=== PATIENT | male | born 1960 | race Caucasian/White ===

== ENCOUNTER 2023-09-18 08:29 | Inpatient (IN) | payer BC, SELFPAY ==
[2023-09-07 09:45] VITALS: BMI 27.6
[2023-09-07 10:14] LABS: % Basophils 0.3 % (0-2); % Eosinophils 6.6 % (0-6); % Immature Granulocytes 0.5 % (0-0.5); % Lymphocytes 17.6 % (20.5-51.1); % Monocytes 12.9 % (1.7-9.3); % Neutrophils 62.1 % (42.2-75.2); Absolute Eosinophils 0.5 10^3/uL (0-0.7); Absolute Lymphocytes 1.3 10^3/uL (1.2-3.4); Absolute Neutrophils 4.7 10^3/uL (1.4-6.5); Hematocrit 37.8 % (39.0-52.0); Hemoglobin 12.7 g/dL (13.0-18.0); Mean Corp Hgb Conc. 33.6 g/dL (33.0-37.0); Mean Corpuscular Hgb 29.7 pg (27.0-31.0); Mean Corpuscular Volume 88.5 fL (80.0-94.0); Mean Platelet Volume 11.1 fL (7.4-10.4); Nucleated Red Blood Cells % 0 % (-); Platelet Count 231 10^3/uL (130-400); Red Blood Cell Count 4.27 10^6/uL (4.70-6.10); Red Cell Dist. Width 13.9 % (11.5-14.5); White Blood Cell Count 7.6 10^3/uL (4.8-10.8)
[2023-09-07 10:39] LABS: ALT (SGPT) 18 U/L (0-50); AST (SGOT) 23 U/L (17-59); Albumin 4.4 g/dl (3.5-5.0); Alkaline Phosphatase 138 U/L (38-126); Blood Urea Nitrogen 24 mg/dl (9-20); Calcium 9.7 mg/dl (8.4-10.2); Carbon Dioxide 24 mmol/L (22-30); Chloride 105 mmol/L (98-107); Estimated Creatinine Clearance 61 ml/min; Glucose 92 mg/dl (70-99); Potassium 4.6 mmol/L (3.5-5.1); Sodium 136 mmol/L (135-145); Total Bilirubin 0.6 mg/dl (0.2-1.3); Total Protein 7.4 g/dl (6.3-8.2); eGFR 51.67
[2023-09-18] VITALS (8 sets, daily range): BP systolic 124–149; BP diastolic 85–109
--- NOTE | 2023-09-18 09:51 | W.PN.CD ---
Addendum entered and electronically signed by ALEJO Mckeon 09/18/23 12:15:
Addition to below- stopping diltiazem since patient with some bradycardia and also since now starting Tikosyn, reviewed case with Dr. Saravia.
Original Note:
Today's Communication / Plan
-
-Initiate Tikosyn 500 mcg PO q 12 hours, first dose now
-Stop diltiazem
-Follow telemetry, EKG's per protocol
-continue Eliquis for OAC
-Ablation tomorrow as planned
Impression / Plan
-
Assessment/Plan: 63 y/o male with AFIB/flutter with hx ablations/cardioversions, hypertension, GERD, hx melanoma, hx thyroid cancer s/p resection 2020, and CKD3a (Dr. Chambers) who is here for Tikosyn initiation with plan for ablation.
Persistent AFIB:
-symptomatic with fatigue and SHRESTHA
-initiate Tikosyn 500 mcg Q12H and follow telemetry and EKG's per protocol- this medicine requires intensive monitoring for toxicity
-will stop diltiazem
-continue Eliquis 5 mg PO BID- he has missed no doses
-plan is for ablation tomorrow- will review with Dr. Saravia
CKD:
-follows with nephrology
-labs stable from earlier this month
HTN:
-monitors at home and reports it is stable
-initial manual BP by me 126/90- follow, continue metoprolol
Physical Exam
Vital Signs/Labs
Vital Signs
Temp Resp Pulse Ox
98.0 F 18 100
09/18/23 09:20 09/18/23 09:20 09/18/23 09:20
Physical Exam
Constitutional: No acute distress
EENT: Anicteric
Cardiovascular: Pedal edema is absent and Rhythm/rate is irregular
Respiratory: Respiratory effort normal and Lungs clear to auscul.
GI: Soft, Non tender and Normal bowel sounds
Neuro/Psych: AO x 3
Other: Skin
Data Reviewed
-
Date of Service: September 18, 2023
EKG: Tracing Personally Visualized and interpreted (AFIB)
Labs: Labs Reviewed by me
[2023-09-18 10:04] LABS: Blood Urea Nitrogen 31 mg/dl (9-20); Calcium 9.5 mg/dl (8.4-10.2); Carbon Dioxide 19 mmol/L (22-30); Chloride 106 mmol/L (98-107); Estimated Creatinine Clearance 65 ml/min; Glucose 100 mg/dl (70-99); Potassium 4.2 mmol/L (3.5-5.1); Sodium 139 mmol/L (135-145); eGFR 56.13
--- NOTE | 2023-09-18 10:14 | PTCARENOTE ---
Pt direct admit for Tikosyn loading, A,A+Ox3. EKG done, IV started L forearm #[id number], labs sent.
[2023-09-18 10:19] LABS: Hematocrit 36.8 % (39.0-52.0); Hemoglobin 12.1 g/dL (13.0-18.0); Mean Corp Hgb Conc. 32.9 g/dL (33.0-37.0); Mean Corpuscular Hgb 29.4 pg (27.0-31.0); Mean Corpuscular Volume 89.3 fL (80.0-94.0); Mean Platelet Volume 11.8 fL (7.4-10.4); Platelet Count 250 10^3/uL (130-400); Red Blood Cell Count 4.12 10^6/uL (4.70-6.10); Red Cell Dist. Width 14.3 % (11.5-14.5)
--- NOTE | 2023-09-18 10:36 | W.CARD.TIKOS ---
Initiate Tikosyn
-
I verify that the patient has not taken any verapamil (Isoptin/Calan), ketoconazole (Nizoral), cimetidine (Tagamet), trimethoprim (Trimpex), trimethoprim/sulfamethoxazole (Bactrim), megesterol (Megace), prochlorperazine (Compazine),
hydrochlorothiazide (HCTZ), dolutegravir (Tivicay) or any Class I or Class III anti-arrhythmic within the last three days
AND
I verify that the patient has not taken amiodarone within the last THREE months, or that the patient's amiodarone plasma concentration is <0.3 mcg/mL.
Creatinine 1.4 mg/dL (0.7-1.3) H 09/18/23 09:36
Estimated Creat Clear 65 ml/min 09/18/23 09:36
Does patient have a Ventricular Conduction Abnormality: Yes
I have assessed the baseline QTc interval (using QT for heart rate less than 60 bpm) and deemed the patient is appropriate for Dofetilide therapy. I understand that Tikosyn is contraindicated if the QTc is >440msec (500msec in patients with
ventricular conduction abnormalities).
Baseline QTc (in msec): 408
QTc interval is greater than 440msec without conduction abnormality OR greater than 500msec with a conduction abnormality, but acceptable to proceed per Cardiology attending.
Ordering Physician: Timothy Saravia
--- NOTE | 2023-09-18 11:31 | CM ---
Chart reviewed. Patient is independent of ADLS, lives with his in a 3 STH, 2 SAEED, 0 DME. Patient currently with no discharge needs. CM to follow
--- NOTE | 2023-09-18 11:32 | CM ---
Pricing on Dofetilide through the patient's PP is $5 for a 30 day and $10 for a 90 day. Dofetilide 500mcq is available at the patient[facility]. I will confirm again closer to discharge.
[2023-09-18] MEDS: TIKOSYN 500 MCG PO ×2 (11:40→23:07)
[2023-09-18] MEDS: SODIUM BICARBONATE 650 MG PO (21:02)
[2023-09-18] MEDS: ELIQUIS 5 MG PO (21:02)
[2023-09-18] MEDS: TOPROL XL 100 MG PO (21:10)
[2023-09-19] VITALS (15 sets, daily range): BP systolic 108–141; BP diastolic 65–96
--- NOTE | 2023-09-19 04:47 | PTCARENOTE ---
Assmued care at 1900. Patient A-FiB 60-80's, 0030 3 beats of VT, no pauses. Tolerating Tikosyn qtc 482, NPO since midnight
[2023-09-19] MEDS: TOPROL XL PO (07:45)
--- NOTE | 2023-09-19 07:57 | W.PN.CD ---
Today's Communication / Plan
-
- Plan for Redo AF ablation
Impression / Plan
-
Assessment/Plan: 63 y/o male with AFIB/flutter with hx ablations/cardioversions, hypertension, GERD, hx melanoma, hx thyroid cancer s/p resection 2020, and CKD3a (Dr. Chambers) who is here for Tikosyn initiation with plan for ablation.
Persistent AFIB:
-symptomatic with fatigue and SHRESTHA
-Tikosyn started 09/18/23- 500 mcg Q12H and follow telemetry and EKG's per protocol
- this medicine requires intensive monitoring for toxicity
-off the diltiazem and contiue Metoprolol.
-continue Eliquis 5 mg PO BID- he has missed no doses
-plan is for redo AF ablation today
CKD:
-follows with nephrology
-labs stable from earlier this month
HTN:
-monitors at home and reports it is stable
-initial manual BP by me 126/90- follow, continue metoprolol
Physical Exam
Vital Signs/Labs
Vital Signs
Temp Pulse Resp BP Pulse Ox
97.6 F 63 16 135/93 96
09/19/23 05:53 09/18/23 23:11 09/19/23 05:53 09/18/23 23:11 09/19/23 05:53
09/18/23 09:36
09/18/23 09:36
Physical Exam
Constitutional: No acute distress and Comfortable
EENT: Anicteric and Moist mucous membranes
Cardiovascular: Rhythm/rate is irregular and Systolic murmur present
Respiratory: Respiratory effort normal, Wheeze Absent and Crackles Absent
GI: Soft, Distention absent and Non tender
Neuro/Psych: Alert, Oriented, AO x 3 and Motor deficits absent
Other: Cath Site
Data Reviewed
-
Date of Service: September 19, 2023
Medical Decision Making: Reviewed Test Results, Independent Historian Assessment, Test Interpretation and Review of Case with other Provider
EKG: Tracing Personally Visualized and interpreted
Echo: Report Reviewed by me
Labs: Labs Reviewed by me
Old Records: Reviewed
[2023-09-19 09:02] LABS: ACT-LR - POC 310 Seconds (116-155)
[2023-09-19 09:20] LABS: ACT-LR - POC 284 Seconds (116-155)
[2023-09-19 09:40] LABS: ACT-LR - POC 371 Seconds (116-155)
[2023-09-19 10:01] LABS: ACT-LR - POC 395 Seconds (116-155)
--- NOTE | 2023-09-19 10:09 | CM ---
Chart reviewed. Patient is going for an ablation today. Patient is independent of ADLS, lives in a 3 STH, 2 SAEED, 0 DME. Plan is for the patient to return home. CM to follow
[2023-09-19 10:30] LABS: ACT-LR - POC 321 Seconds (116-155)
[2023-09-19 10:55] LABS: ACT-LR - POC 363 Seconds (116-155)
[2023-09-19] MEDS: TIKOSYN PO (11:00)
--- NOTE | 2023-09-19 11:58 | ITS.CL.ABL ---
Control Operator - Ablation
Ablation
Procedure Report:
AFIB ablation:
Mr. Saravia is a very pleasant 63 yr old gentleman with h/o persistent AF s/p AF ablation in 09/2016 (Dr. Zaldivar) and had a redo AF ablation on 02/14/2020 (redo PVI, PWI, mitral flutter) with a left atrial diverticulum has gone into recurrent atrial
tachycardia / flutter / fibrillation and presented today to the EP lab for atrial fibrillation / flutter ablation.
Date of Procedure:
09/19/2023
Indications:
Recurrent atrial fibrillation / atrial flutter / Atrial tachycardia
Pre-Operative Diagnosis:
Atrial fibrillation/ Atrial flutter / Atrial tachycardia
Post-Operative Diagnosis:
Atrial fibrillation/ Atrial flutter / Atrial tachycardia
Procedure Performed:
Redo atrial fibrillation ablation with focal atrial fibrillation ablation
Posterior wall isolation
Left atrial anterior wall tachycardia ablation
Mitral isthmus ablation for zachary-mitral flutter ablation around the atrial diverticulum
Biatrial atrial flutter ablation
Coronary sinus atrial tachycardia ablation
Cavo tricuspid isthmus dependent flutter ablation.
Performing Physician:
Timothy Saravia MD
Assistants:
EP staff
Anesthesia:
See anesthesia records
Detailed Description of the Procedure:
Written informed consent was obtained from the patient after a full explanation of the risks and benefits of the procedure including the risks of sedation and anesthesia.
The patient was brought to the electrophysiology laboratory in stable condition in fasting state. Continuous electrocardiographic and hemodynamic monitoring was initiated.
The initial rhythm was atrial fibrillation.
Time out:
The procedure site was meticulously prepared with surgical scrub and allowed to dry with no pooling. Sterile draping was applied to cover the procedure site. The image intensifier was draped with sterile bag and positioned over the patient.
Prior to the start of the procedure a surgical pause was performed with in agreement from anesthesia, EP staff with double identifier and explanation of the procedure, plan and site of the procedure stated with allergies and medications and
pertinent labs reviewed.
After infusion of local anesthetic, vascular access was obtained under ultrasound guidance and sheaths were placed over guide wire as detailed below.
Sheaths:
��������������� Agilis sheath in right femoral vein upgraded from 8Fr in right femoral vein
��������������� 9Fr in right femoral vein
��������������� 7fr in right femoral vein
Catheters:
��������������� ������������� 3.5mm force sensing irrigated Thermocool STSF DF Bidirectional - at locations of HRA, LA, LV and CS.
��������������� ������������� Penta-ray mapping catheter � at locations of RA, LA
��������������� ������������� ICE catheter - at locations of RA, SVC, and RV.
��������������� ������������� Decapolar Bard catheter � at locations of RA and CS
A 7000 units of heparin was given
Intracardiac ECHO:
An 8-Montserratian AcuNav intracardiac ECHO (ICE) probe was advanced through the 9-Montserratian sheath in the right femoral vein into the right atrium under fluoroscopic and ICE ultrasound image guidance and a baseline ECHO study was performed. The left atrial
size was severely dilated. There was trace tricuspid regurgitation. There was mild mitral regurgitation. The aortic valve was grossly normal. There was normal left ventricular size and function. There is small pericardial effusion. All the four
veins were identified and has good flow identified. There was dense spontaneous contrast noted at the mouth of the ONUR. No definite clot seen. The left atrial diverticulum Doppler showed good flow in and out of the pouch.
During the procedure, ICE was used for monitoring of complications, guidance of trans-septal puncture, monitor the catheter position and tracking ablation lesions. No change in the pericardial space noted throughout the procedure.
Trans-septal Puncture:
Heparin was initiated and infused to maintain appropriate ACT. A J-tipped guidewire was advanced through the 8-Montserratian sheath in the right femoral vein into the superior vena cava under fluoroscopic and ICE guidance. The 8-Montserratian sheath was exchanged
for an Agilis sheath which was advanced into the superior vena cava. A BRK transseptal needle was advanced until the tip was slightly behind the tip of the dilator inside the Agilis sheath. The apparatus was withdrawn until it was in contact with
the fossa ovalis. The position was adjusted based on fluoroscopy and ultrasound images from ICE. Under fluoroscopic, hemodynamic and ICE ultrasound guidance, left atrium was cannulated by advancing the needle. Once atrial septum was cannulated, the
needle was pulled back and a BMW guide wire was advanced through the needle into the left atrium. The guide wire was advanced into the left superior pulmonary vein. Both the sheath and the dilator was advanced into the left atrium. The dilator with
the needle was withdrawn. Blood was aspirated from the Agilis sheath and arterial blood confirmed. The sheath was flushed. Saline injection noted into the left atrium on ICE. The mapping catheter was advanced in the Agilis sheath into the left
pulmonary vein. Left atrial pressure was measured and elevated V wave noted likely showing at least moderate mitral regurgitation.
3D Electroanatomic Mapping:
Using the Pentaray catheter advanced through Agilis sheath into the left atrium, an electroanatomic map (EAM) of the left atrium was created using Carto mapping system. The map was used for localization of catheter position and tacking of ablation
lesions.
The EAM of the left atrium showed 4 pulmonary veins with all 4 veins electrically isolated from the body the LA. The left atrial posterior wall has mid location of epicardial connections that were showing entrance of atrial fibrillation.
It showed extensive scar on the posterior and anterior wall of the LA with only occasional area of atrial electrical activity. The LA was dilated in size.
Following the EAM, preparation were made for ablation.
Ablation:
Ablation # 1: Atrial fibrillation ablation - Atrial foci ablation:
Using Carto mapping system, the Ripple mapping guided AF areas were identified. The Carto finder also identified high frequency areas and were marked. These areas of interest were ablated and the ablation points were extended to connect to the
previous ablation lesions of the mitral annulus to avoid any atrial flutter generation.
All PVI were rechecked at the end of the case and remained isolated with dissociated and local capture with pacing. Entrance and exit block were demonstrated in all veins.
Ablation # 2: Posterior wall isolation
The epicardial connections in the posterior wall were ablated using the 3.5 mm force sensing irrigated ablation catheter. There were no electrical activity left in the posterior wall.
The Cardioversion did not achieve sinus rhythm and the roof and the floor lines were extended.
Cardioversion:
Due to the developments of atrial fibrillation during the case, the decision was made to proceed with a cardioversion followed by the remainder of the ablation as detailed below. Therefore, a 200J shock was delivered to the chest with latter day of
ectopic atrial rhythm. The patient remained hemodynamically stable throughout.
The CS was paced. Patient developed an atrial flutter almost immediately. The CL was 540 ms
Ablation # 3: Mitral isthmus ablation for zachary-mitral flutter ablation around the atrial diverticulum
Tachycardia was 540 ms and was studied in detail.� Main treatment of the tachycardia shows it is in the coronary sinus. Electroanatomic mapping of the tachycardia that showed tachycardia is an atrial flutter revolving around the mitral valve without
critical stenosis at the superior border of left atrial diverticulum. Critical isthmus of the flutter was ablated and tachycardia turned into sinus rhythm with a duration of the block.
Ablation # 4: Left atrial anterior wall tachycardia ablation
Patient stayed in sinus rhythm for only few minutes. Left atrium was mapped in sinus rhythm but went back into atrial fibrillation which was organized with a focal source appears to be coming from the left atrial roof.
The source of the atrial tachycardia was identified and a line of ablation lesions were created connecting the roofline to the mitral isthmus again isolating the left atrial appendage. Left atrial appendage was mapped and was active with dissociated
from the left atrial flutters and was activated through ventricle with epicardial connections with one-to-one with ventricle and 2:1 with rest of the left atrium
With the ablation, patient went into atrial fibrillation and A. tach/flutter dissipated.
Ablation # 5: Biatrial atrial flutter ablation:
Another 200 J cardioversion was done to restore sinus rhythm. Sinus rhythm was achieved only for few minutes and went back into another tachycardia 410 ms cycle length
This tachycardia was again entrained from the CS and both proximal and distal CS was brought part of the tachycardia. The lateral wall of the right atrium was also paced and showed not part of the tachycardia. Limited mapping before tachycardia
turned into atrial fibrillation showed that the tachycardia is involving the atrial septum.
A series of ablation were placed to create a line of block at the septum, on the anterior of the right-sided pulmonary veins, involving the Pradeep bundle and connecting these lesions to the anterior wall of the LA to the mitral isthmus.
Tachycardia terminated to sinus rhythm. The sinus rhythm again stated only momentarily and went back into another rhythm with a cycle length of 310 ms.
Ablation # 6: Coronary sinus atrial tachycardia ablation
This tachycardia was again studied in detail. The left atrium and the lateral wall of the right atrium were both not part of this tachycardia. The both chambers were mapped and only showed part of the tachycardia showing its focal origin. That is
part of the tachycardia was identified. It was earliest at the proximal CS on the left atrium but was was mapped on the right atrium showed that it was at the mouth of the coronary sinus.
Careful ablations using 30-Vance irrigated lesions applied and tachycardia terminated.
Ablation # 7: Cavo tricuspid isthmus dependent flutter ablation.
Tachycardia degenerated into another rhythm which appeared to be cavotricuspid dependent flutter.� A series of lesions were created on the cavotricuspid isthmus connecting the tricuspid annulus to inferior vena cava.
With ablations tachycardia terminated with normal sinus rhythm and sinus rhythm persisted.� Further ablations were created with CS pacing and line of block was created showing trans CTI isthmus conduction time was 180 ms. Right atrium was mapped
using coronary sinus pacing that shows block at the CTI and differential pacing confirmed block.
Procedure End
ICE study was done again that showed no epicardial accumulation. No complications noted.
Following the completion of the EP study, catheters were removed. Protamine 40 mg was given at the end of the procedure and ACT was checked repeatedly. The sheaths were removed and hemostasis achieved with manual compression after acceptable ACT is
achieved.
Left atrial Pressure:
Pre-Procedure: Mean LA pressure was 11mmHg
Post-Procedure: Mean LA pressure was 17mmHg
Pre-Procedure: Mean RA pressure was 7mmHg
Estimated Blood loss:
<10 cc
Specimens Removed:
None.
Implants / Devices:
None
Urine output:
None
Packs / Drains/ Tubes:
None
Instrument / Sponge Count Correct:
Yes
Complications of the Procedure:
None
Condition of Patient at Time of Transfer:
Hemodynamically stable with no neurological or vascular compromise.
Summary:
Successful redo atrial fibrillation ablation with focal high frequency atrial fibrillation foci ablation, Left atrial anterior wall tachycardia ablation, Posterior wall isolation, Mitral isthmus ablation for zachary-mitral flutter ablation around the
atrial diverticulum, Biatrial atrial flutter ablation, Coronary sinus atrial tachycardia ablation, Cavo tricuspid isthmus dependent flutter ablation.
..
--- NOTE | 2023-09-19 12:58 | PTCARENOTE ---
Rec'd Pt post ablation, A,A+O, no complaints of pain. R femoral dsg D+I
[2023-09-19] MEDS: SYNTHROID PO (14:06)
[2023-09-19] MEDS: ELIQUIS PO (14:07)
[2023-09-19] MEDS: PROTONIX 40 MG PO ×2 (14:11→20:33)
[2023-09-19] MEDS: VITAMIN C 500 MG PO (15:19)
[2023-09-19] MEDS: SODIUM BICARBONATE 650 MG PO ×2 (15:19→20:34)
[2023-09-19] MEDS: VITAMIN D3 (cholecalciferol) 25 MCG PO (15:20)
[2023-09-19] MEDS: COLCHICINE 0.599999999999999978 MG PO ×2 (15:21→20:33)
[2023-09-19] MEDS: VITAMIN B-12 1000 MCG PO (15:27)
[2023-09-19] MEDS: SYNTHROID 50 MCG PO ×2 (15:29→15:31)
[2023-09-19] MEDS: TIKOSYN 500 MCG PO (15:31)
[2023-09-19] MEDS: COLACE 100 MG PO (15:33)
--- NOTE | 2023-09-19 15:59 | PTCARENOTE ---
Figure of 8 suture clipped R groin, without incident. Pt cecilio well.
[2023-09-19] MEDS: ELIQUIS 5 MG PO (18:23)
[2023-09-19] MEDS: TOPROL XL 100 MG PO (20:33)
[2023-09-20] MEDS: TIKOSYN 500 MCG PO (01:54)
[2023-09-20 04:09] VITALS: BP 121/70
[2023-09-20 05:00] LABS: Hematocrit 33.4 % (39.0-52.0); Hemoglobin 11.2 g/dL (13.0-18.0); Mean Corp Hgb Conc. 33.5 g/dL (33.0-37.0); Mean Corpuscular Hgb 29.1 pg (27.0-31.0); Mean Corpuscular Volume 86.8 fL (80.0-94.0); Mean Platelet Volume 10.8 fL (7.4-10.4); Platelet Count 250 10^3/uL (130-400); Red Blood Cell Count 3.85 10^6/uL (4.70-6.10); Red Cell Dist. Width 14.4 % (11.5-14.5); White Blood Cell Count 12.6 10^3/uL (4.8-10.8)
[2023-09-20 05:31] LABS: Blood Urea Nitrogen 30 mg/dl (9-20); Calcium 8.7 mg/dl (8.4-10.2); Carbon Dioxide 17 mmol/L (22-30); Chloride 107 mmol/L (98-107); Estimated Creatinine Clearance 61 ml/min; Glucose 118 mg/dl (70-99); Magnesium 1.9 mg/dl (1.6-2.3); Potassium 4.3 mmol/L (3.5-5.1); Sodium 135 mmol/L (135-145); eGFR 51.67
[2023-09-20] MEDS: PROTONIX 40 MG PO ×2 (05:48→20:15)
[2023-09-20] MEDS: SYNTHROID 50 MCG PO (05:48)
[2023-09-20 07:22] VITALS: BP 132/85
[2023-09-20] MEDS: TOPROL XL PO (09:07)
[2023-09-20] MEDS: ELIQUIS 5 MG PO ×2 (09:09→20:15)
[2023-09-20] MEDS: VITAMIN B-12 1000 MCG PO (09:09)
[2023-09-20] MEDS: VITAMIN D3 (cholecalciferol) 25 MCG PO (09:10)
[2023-09-20] MEDS: VITAMIN C 500 MG PO (09:10)
[2023-09-20] MEDS: COLCHICINE 0.599999999999999978 MG PO ×2 (09:10→20:15)
[2023-09-20] MEDS: TOPROL XL 50 MG PO (09:10)
[2023-09-20] MEDS: SODIUM BICARBONATE 650 MG PO ×2 (09:10→20:15)
[2023-09-20] MEDS: TIKOSYN PO (09:11)
--- NOTE | 2023-09-20 11:14 | W.PN.CD ---
Today's Communication / Plan
-
Stop tikosyn for proarrhythmia
Start Flec tomorrow
Outpatient stress
Want at lest 4 dose of flec in hospital before discharge
Impression / Plan
-
Assessment/Plan: 63 y/o male with AFIB/flutter with hx ablations/cardioversions, hypertension, GERD, hx melanoma, hx thyroid cancer s/p resection 2020, and CKD3a (Dr. Chambers) who is here for Tikosyn initiation with plan for ablation.
Persistent AFIB:
-symptomatic with fatigue and SHRESTHA
-s/p extensive LA ablation for AFib on 09/19/2022 (redo ablation
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
- Stop tikosyn
- Tomorrow start Flecainide
- Outpatient stress test to assess flecainide and to screen for CKD
CKD:
-follows with nephrology
-labs stable from earlier this month
HTN:
-monitors at home and reports it is stable
-initial manual BP by me 126/90- follow, continue metoprolol
Physical Exam
Vital Signs/Labs
Vital Signs
Temp Pulse Resp BP Pulse Ox
97.8 F 109 18 132/85 98
09/20/23 07:21 09/20/23 08:00 09/20/23 07:21 09/20/23 07:22 09/20/23 07:21
09/20/23 04:27
09/20/23 04:27
Magnesium 1.9 mg/dl (1.6-2.3) 09/20/23 04:27
Physical Exam
Constitutional: No acute distress
EENT: Anicteric
Cardiovascular: Rhythm & rate is regular and Pedal edema is absent
Respiratory: Respiratory effort normal and Lungs clear to auscul.
GI: Soft and Distention absent
Neuro/Psych: AO x 3
Data Reviewed
-
Date of Service: September 20, 2023
--- NOTE | 2023-09-20 11:34 | CM ---
Chart reviewed. Patient is independent of ADLS, lives with his in a 3 STH, 2 SAEED, 0 DME. Dofetilide being stopped and patient being started on Flecainide 09/21. Plan is for the patient to return home after 4 doses. CM to follow
[2023-09-20 11:59] VITALS: BP 133/97
[2023-09-20 15:29] VITALS: BP 119/79
[2023-09-20 18:49] VITALS: BP 120/78
[2023-09-20] MEDS: TYLENOL 650 MG PO (20:15)
[2023-09-20 22:27] VITALS: BP 136/86
[2023-09-20] MEDS: TOPROL XL 100 MG PO (22:31)
[2023-09-21] VITALS (9 sets, daily range): BP systolic 112–147; BP diastolic 76–103
--- NOTE | 2023-09-21 00:31 | PTCARENOTE ---
Pt rec'd at beginning of shift awake,alert oriented. Crackles noted in left base only. occ thick mcclelland sputum. sinus tobias on telemetry.
[2023-09-21] MEDS: TAMBOCOR 100 MG PO ×2 (08:06→19:54)
[2023-09-21] MEDS: PROTONIX 40 MG PO ×2 (08:06→19:54)
[2023-09-21] MEDS: COLCHICINE 0.599999999999999978 MG PO ×2 (08:07→19:55)
[2023-09-21] MEDS: TOPROL XL 50 MG PO (08:07)
[2023-09-21] MEDS: VITAMIN D3 (cholecalciferol) 25 MCG PO (08:07)
[2023-09-21] MEDS: VITAMIN B-12 1000 MCG PO (08:07)
[2023-09-21] MEDS: SODIUM BICARBONATE 650 MG PO ×2 (08:07→19:54)
[2023-09-21] MEDS: VITAMIN C 500 MG PO (08:07)
[2023-09-21] MEDS: ELIQUIS 5 MG PO ×2 (08:07→19:54)
[2023-09-21] MEDS: SYNTHROID 50 MCG PO (09:34)
--- NOTE | 2023-09-21 10:44 | PTCARENOTE ---
Rec'd pt from prev nsg shift this AM AAOx3 w/no c/o CP or SOB. Pt's VS stable. Pt is Sinus bradycardic on telemetry monitoring, w/HR dipping into 30's at times, which pt states 'is his baseline' & MDs are aware. Discussed pt information sheet
provided yesterday to pt on new med, flecainide. Pt reports no questions re: this new med. Pt w/call spence within reach & no addtl needs at this time.
--- NOTE | 2023-09-21 11:06 | W.PN.CD ---
Today's Communication / Plan
-
- Flecainide started today on 09/21/23
- Continue telemetry given NSVT -torsades
Impression / Plan
-
Assessment/Plan: 63 y/o male with AFIB/flutter with hx ablations/cardioversions, hypertension, GERD, hx melanoma, hx thyroid cancer s/p resection 2020, and CKD3a (Dr. Chambers) who is here for Tikosyn initiation with plan for ablation.
Persistent AFIB:
-symptomatic with fatigue and SHRESTHA
-s/p extensive LA ablation for AFib on 09/19/2022 (redo ablation)
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
- Tikosyn stopped.
- started on Flecainide - first dose on 09/21/23
- Flecainide is good for AF but may increase his risk of re-entry flutters.
- Outpatient stress test to assess flecainide and to screen for CKD
- Likely discharge tomorrow after Flecainide.
- If flecainide fails, can consider Amiodarone for 6 months
CKD:
-follows with nephrology
-labs stable from earlier this month
HTN:
-monitors at home and reports it is stable
-initial manual BP by me 126/90- follow, continue metoprolol
Physical Exam
Vital Signs/Labs
Vital Signs
Temp Pulse Resp BP Pulse Ox
99 F 101 20 123/94 95
09/21/23 07:47 09/21/23 07:50 09/21/23 07:47 09/21/23 07:50 09/21/23 04:30
09/20/23 04:27
09/20/23 04:27
Magnesium 1.9 mg/dl (1.6-2.3) 09/20/23 04:27
Physical Exam
Constitutional: No acute distress and Comfortable
EENT: Anicteric and Moist mucous membranes
Cardiovascular: Rhythm & rate is regular, Pedal edema is absent and JVD pressure is normal
Respiratory: Respiratory effort normal, Lungs clear to auscul., Wheeze Absent and Crackles Absent
GI: Soft, Distention absent and Non tender
Neuro/Psych: Alert, Oriented, AO x 3 and Motor deficits absent
Other: Cath Site
Data Reviewed
-
Date of Service: September 21, 2023
Medical Decision Making: Reviewed Test Results, Independent Historian Assessment and Review of Case with other Provider
EKG: Tracing Personally Visualized and interpreted
Echo: Report Reviewed by me
Labs: Labs Reviewed by me
Old Records: Reviewed
--- NOTE | 2023-09-21 11:12 | CM ---
Chart reviewed. Patient started on Flecainide today. Patient is independent of ADLS, lives with his in a 3 STH, 2 SAEED, 0 DME. Plan is for the patient to return home. CM to follow
--- NOTE | 2023-09-21 14:29 | W.PN.UPDATE ---
Update Note
Progress Note Update
Patient evaluated and is in atrial flutter / atrial tachycardia with 2:1 conduction in 90s bpm ventricular rate - asymptomatic.
With Flecainide on board, will increased Metoprolol from 150 to 100mg BID.
Keep on Telemetry
--- NOTE | 2023-09-21 18:05 | PTCARENOTE ---
Addendum entered by Naz Vásquez RN 09/21/23 18:25:
Pt actually appears to be in a sinus arrythmia on telemetry monitoring w/HR in the 90's.
Original Note:
Pt noted on telemetry monitoring to be going in and out of Afib from SR frequently since about 1638 this afternoon. Pt's VS stable. HR in the 80's-90's at rest & in the low 100's w/activity. Pt is asymptomatic when in Afib. Plan of care ongoing.
[2023-09-21] MEDS: TOPROL XL 100 MG PO (19:55)
--- NOTE | 2023-09-21 22:11 | PTCARENOTE ---
received patient at the change of shift. AAOx3. resting in bed with family at the bedside. HR appears to be in and out of Afib and SR with PACs. 90s-100s. bp stable. denies any pain at this time. denies SOB. ambulating in the room independently.
at approx 20:05, patient had a 2.37 conversion pause to SB with a first degree AVB. patient resting in bed at this time. denies any symptoms. bp 112/86.
[2023-09-22 03:13] VITALS: BP 139/87
--- NOTE | 2023-09-22 06:12 | PTCARENOTE ---
patient slept well overnight. ambulating to the BR independently. SB 40s-50s on tele. no pain. eager to go home.
[2023-09-22 07:49] VITALS: BP 134/89
[2023-09-22] MEDS: SYNTHROID 50 MCG PO (08:31)
[2023-09-22] MEDS: PROTONIX 40 MG PO (08:32)
--- NOTE | 2023-09-22 09:30 | W.PN.CD ---
Today's Communication / Plan
-
- Discharge home today
Impression / Plan
-
Assessment/Plan: 63 y/o male with AFIB/flutter with hx ablations/cardioversions, hypertension, GERD, hx melanoma, hx thyroid cancer s/p resection 2020, and CKD3a (Dr. Chambers) who is here for Tikosyn initiation with plan for ablation.
Persistent AFIB:
-symptomatic with fatigue and SHRESTHA
-s/p extensive LA ablation for AFib on 09/19/2022 (redo ablation)
-AFl on 09/21 - dissipated later same day
-Now sinus bradycardia
Sinus bradycardia
-Noted for years and Pacemaker has been discussed
-reports asymptomatic - if symptoms develops then consider PPM. Needs Metoprolol for concomitant flecainide use
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
- Tikosyn stopped.
- started on Flecainide - first dose on 09/21/23
- Flecainide is good for AF but may increase his risk of re-entry flutters.
- Outpatient stress test to assess flecainide and to screen for CKD
- Likely discharge today after Flecainide AM dose.
- If flecainide fails, can consider Amiodarone for 6 months
- Increase metoprolol to 100mg BID
CKD:
-follows with nephrology
-labs stable from earlier this month
HTN:
-monitors at home and reports it is stable
-initial manual BP by me 126/90- follow, continue metoprolol
Physical Exam
Vital Signs/Labs
Vital Signs
Temp Pulse Resp BP Pulse Ox
98.4 F 48 20 134/89 96
09/22/23 07:43 09/22/23 07:49 09/22/23 07:43 09/22/23 07:49 09/22/23 08:00
09/20/23 04:27
09/20/23 04:27
Magnesium 1.9 mg/dl (1.6-2.3) 09/20/23 04:27
Physical Exam
Constitutional: No acute distress and Comfortable
EENT: Anicteric and Moist mucous membranes
Cardiovascular: Rhythm & rate is regular, Pedal edema is absent, JVD pressure is normal and Systolic murmur absent
Respiratory: Respiratory effort normal, Lungs clear to auscul. and Wheeze Absent
GI: Soft, Distention absent, Non tender and Normal bowel sounds
Neuro/Psych: Alert, Oriented and AO x 3
Other: Cath Site
Data Reviewed
-
Date of Service: September 22, 2023
Medical Decision Making: Reviewed Test Results, Independent Historian Assessment and Test Interpretation
EKG: Tracing Personally Visualized and interpreted
Echo: Report Reviewed by me
Labs: Labs Reviewed by me
Old Records: Reviewed
[2023-09-22] MEDS: ELIQUIS 5 MG PO (09:42)
[2023-09-22] MEDS: VITAMIN C 500 MG PO (09:43)
[2023-09-22] MEDS: VITAMIN D3 (cholecalciferol) 25 MCG PO (09:43)
[2023-09-22] MEDS: TAMBOCOR 100 MG PO (09:43)
[2023-09-22] MEDS: COLCHICINE 0.599999999999999978 MG PO (09:50)
[2023-09-22] MEDS: TOPROL XL 100 MG PO (09:50)
[2023-09-22] MEDS: SODIUM BICARBONATE 650 MG PO (09:51)
[2023-09-22] MEDS: VITAMIN B-12 1000 MCG PO (09:51)
--- NOTE | 2023-09-22 10:05 | W.DS.TRANS ---
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
-
Discharge Instructions:
Discharge Diagnosis/Procedures AFib/Flutter, Tikosyn load, s/p AFib/Flutter
ablation
Diet Low Cholesterol
Activity As tolerated
Driving Restrictions No driving for 24 hours
Bathing Restrictions None
Instructions:
Stand-Alone Forms: DC Instructions- Cath/EP Lab
Changes to Home Medications: Yes
Discharge Medications:
DC Medications w/original date entered in [employer]
ascorbic acid (vitamin C) 500 mg tablet (Vitamin C) 500 mg PO DAILY Supplement 10/20/14
cholecalciferol (vitamin D3) 25 mcg (1,000 unit) capsule (Vitamin D3) 1,000 unit PO DAILY Supplement 02/18/20
cyanocobalamin (vitamin B-12) 1,000 mcg tablet 1,000 mcg PO DAILY Supplement 12/07/22
levothyroxine 50 mcg tablet (Synthroid) 50 mcg PO DAILY Thyroid 12/08/22
sodium bicarbonate 650 mg tablet 650 mg PO BID Electrolyte Repletion 01/03/23
acetaminophen 325 mg tablet (Tylenol) 650 mg PO Q4H PRN pain 09/18/23
tadalafil 20 mg tablet 20 mg PO DAILY PRN ED 09/18/23
apixaban 5 mg tablet (Eliquis) 5 mg PO BID Blood Clot Prevention/Tx 09/19/23
apixaban 5 mg tablet (Eliquis) 5 mg PO BID #60 tabs 09/22/23
colchicine 0.6 mg tablet 0.6 mg PO BID Anti-inflammatory #60 tabs 09/22/23
flecainide 100 mg tablet 100 mg PO Q12 #60 tabs 09/22/23
metoprolol succinate 100 mg tablet,extended release 24 hr 100 mg PO BID #60 tabs 09/22/23
pantoprazole 40 mg tablet,delayed release 40 mg PO BID #30 tabs 09/22/23
Home Medication Changes
Toprol increased to 100mg BID.
Flecainide is new.
Protonix is new.
Colchicine is new.
Pending Results: No
--- NOTE | 2023-09-22 12:16 | PTCARENOTE ---
Pt remains in SR. OOB ad nany in the room. Denies any pain or sob. Right groins site WNL and open to air. Pt discharged to home with his . Discharge instructions given and reviewed with good understanding.
== END 2023-09-22 12:26 | disposition home or self-care (01) | DRG 274 ==
LOC: IVU 08:29
PROVIDERS: Nurse Practitioner; ADMITTING PHYSICIAN Internal Medicine Cardiovascular Disease; FAMILY PHYSICIAN Family Medicine
PROC: 4A023FZ Measurement of Cardiac Rhythm, Percutaneous Approach (ICD-10-PCS; 2023-09-19)
PROC: 02583ZZ Destruction of Conduction Mechanism, Percutaneous Approach (ICD-10-PCS; 2023-09-19)
PROC: 4A0234Z Measurement of Cardiac Electrical Activity, Percutaneous Approach (ICD-10-PCS; 2023-09-19)
PROC: 5A2204Z Restoration of Cardiac Rhythm, Single (ICD-10-PCS; 2023-09-19)
PROC: 02K83ZZ Map Conduction Mechanism, Percutaneous Approach (ICD-10-PCS; 2023-09-19)
DX: I48.19 Other persistent atrial fibrillation (principal); I31.39 Other pericardial effusion (noninflammatory); I48.92 Unspecified atrial flutter; I12.9 Hypertensive chronic kidney disease with stage 1 through stage 4 chronic kidney disease, or unspecified chronic kidney disease; N18.31 Chronic kidney disease, stage 3a; K21.9 Gastro-esophageal reflux disease without esophagitis; I87.2 Venous insufficiency (chronic) (peripheral); I47.19 Other supraventricular tachycardia; Q24.8 Other specified congenital malformations of heart; R00.1 Bradycardia, unspecified; I47.20 Ventricular tachycardia, unspecified; T46.2X5A Adverse effect of other antidysrhythmic drugs, initial encounter; I44.0 Atrioventricular block, first degree; Z85.820 Personal history of malignant melanoma of skin; Z85.850 Personal history of malignant neoplasm of thyroid; Z79.01 Long term (current) use of anticoagulants
CPT/HCPCS: 36415; 76937; 80048; 80053; 83735; 85025; 85027; 85347; 86850; 86900; 86901; 93005; 93655; 93656; C1730; C1732; C1759; C1766; C1769; C1892; C1894

== ENCOUNTER → 2024-12-16 14:06 | Outpatient (REF) | payer BC, SELFPAY | LOC: RAD 14:06 | PROVIDERS: ATTENDING PHYSICIAN Internal Medicine Endocrinology, Diabetes & Metabolism; FAMILY PHYSICIAN Family Medicine | DX: C73 Malignant neoplasm of thyroid gland (principal) | CPT/HCPCS: 76536 ==

== ENCOUNTER → 2025-05-02 10:16 | Outpatient (REF) | payer BC, SELFPAY | LOC: RCS 10:16 | PROVIDERS: ATTENDING PHYSICIAN Internal Medicine Cardiovascular Disease; FAMILY PHYSICIAN Family Medicine | DX: R06.09 Other forms of dyspnea (principal); C43.9 Malignant melanoma of skin, unspecified | CPT/HCPCS: 93306 ==